=== PATIENT | male | born 1965 | race Caucasian/White ===

== ENCOUNTER 2020-06-09 20:19 | Emergency (ER) | payer OTHER ==
--- NOTE | 2020-06-09 20:55 | RAD ---
RADIOGRAPH CHEST 1 VIEW: DATE: 06/09/2020 HISTORY: 55-year-old male with right-sided chest pain FINDINGS: There are no airspace densities, pulmonary edema, pneumothorax, or cardiomegaly. The lateral costophr enic angles are sharp. IMPRESSION: No acute cardiopulmonary findings.
[2020-06-09] MEDS ORDERED: Morphine 4 MG/ML VIAL ONE (21:02)
[2020-06-09] MEDS ORDERED: Ondansetron PF 4 MG/2 ML Vial ONE (21:02)
[2020-06-09 21:05] LABS: #Basophils 0.1 thou/uL (0.0-0.2); #Eosinphils 0.4 thou/uL (0.0-0.7); #Lymphocytes 1.8 thou/uL (1.20-3.40); #Neutrophils 9.7 thou/uL (1.40-6.50); %Basophils 0.4 % (0.0-1.0); %Eosinophils 2.9 % (0.0-10.0); %Lymphocytes 13.7 % (21.0-51.0); %Monocytes 7.7 % (0.0-10.0); %Neutrophils 75.4 % (42.0-75.0); Mean Corpuscular HGB CONC 33.5 g/dL (32.0-36.0); Mean Corpuscular Hemoglobin 31.4 pg (27.0-31.0); Mean Corpuscular Volume 93.8 fL (78.0-98.0); Mean Platelet Volume 8.6 fL (7.4-10.4); Platelet Count 204 thou/uL (130-400); RBC Distribution Width 11.8 % (11.5-14.5); Red Blood Cell (RBC) Count 5.73 mill/uL (4.70-6.10); White Blood Cell (WBC) Count 12.9 thou/uL (4.8-10.8)
[2020-06-09 21:10] LABS: Bilirubin Negative (Negative); Blood, Urine Negative (Negative); Clarity Clear (Clear); Glucose, Urine (Dipstick) Normal (Negative); Ketone, Urine 10 mg/dL (Negative); Leukocyte Negative Leu/uL (Negative); Nitrite Negative (Negative); Protein, Urine (Dipstick) 10 mg/dL (Neg-Trace); Urobilinogen Normal mg/dL (Less than 2); pH, Urine 5.5 (5.0-9.0)
[2020-06-09 21:16] LABS: ALT (SGPT) 36 U/L (8-55); AST (SGOT) 26 U/L (5-34); Albumin 4.7 g/dL (3.5-5.0); Alkaline Phosphatase 54 U/L (40-110); Anion Gap 16 mmol/L (10-20); BUN (Urea Nitrogen) 15 mg/dL (8.4-25.7); Bilirubin, Total 0.5 mg/dL (0.2-1.2); CK (CPK) 126 U/L (30-200); Calc. Creatinine Clearance 0 mL/min (70-130); Calcium 9.1 mg/dL (7.8-10.44); Carbon Dioxide 25 mmol/L (22-29); Chloride 104 mmol/L (98-107); Globulin 2.5 g/dL (2.4-3.5); Glucose 113 mg/dL (70-105); Lipase 24 U/L (8-78); Potassium 3.4 mmol/L (3.5-5.1); Protein, Total 7.2 g/dL (6.0-8.3); Sodium 142 mmol/L (136-145)
[2020-06-09] MEDS ORDERED: Ketorolac Tromethamine 30 MG/ML VIAL ONE (21:30)
--- NOTE | 2020-06-09 22:10 | CT ---
CT ABDOMEN NONCONTRAST CT PELVIS NONCONTRAST: (Urolithiasis protocol) DATE: 06/09/2020 HISTORY: 55-year-old male with right flank pain COMPARISON: None TECHNIQUE: IV injection of iodinated contrast media: None Oral contrast media: None FINDINGS: Other than for urolithiasis, the lack of IV and oral contrast limits the evaluation. There are numerous small cysts in the left and right lobes of liver. There is a faint, moderately low attenuation, noncystic, approximately 2.5 x 2.5 x 3 cm lesion with s haggy margins, at the junction between hepatic segments 7 and 8. No intrahepatic biliary ductal dilation. No renal, ureteral, or bladder calculus. Several parapelvic cysts at mid and lower pole of left kidney. No hydronephrosis. Normal mural thickness of urinary bladder. Normal appendix. No small bowel dilation, ascites, pneumoperitoneum, colonic diverticulitis, pleural effusion, or basi lar pulmonary consolidation. Within the limitations of a noncontrast scan, no gross pathology identified involving right kidney, a bdominal aorta, adrenals, pancreas, or spleen.. IMPRESSION: 1) no urolithiasis or obstructive uropathy. 2) 3 cm solid, irregular lesion in right lobe of liver. On a nonemergent, elective basis, CT abdomen with and without contrast, liver mass protocol, is recommended. 3) multiple small hepatic cysts.
[2020-06-09] MEDS ORDERED: Diazepam 5 MG TAB ONE (22:55)
== END 2020-06-09 23:20 | disposition home or self-care (01) ==
LOC: ERS 20:19
DX: R10.11 Right upper quadrant pain (principal)
CPT/HCPCS: 71045; 74176; 80053; 81003; 82550; 83690; 84484; 85025; 93005; 94760; 96374; 96375; J1885; J2270; J2405

== ENCOUNTER 2020-07-04 10:08 | Outpatient (CLI) | payer OTHER ==
--- NOTE | 2020-07-04 11:39 | CT ---
CT abdomen without and with IV contrast HISTORY: Liver mass. COMPARISON: CT abdomen 06/09/2020. FINDINGS: The lung bases are clear. Multiple simple cysts are present throughout the liver. The largest in the left lobe is 1.7 cm. The l argest in the right lobe is 2.2 cm. Within the far lateral aspect of the liver dome at the level of the right hepatic vein is an irregula r shaped nonenhancing low density mass with irregular margins. It is 2.6 cm length by 3.4 cm depth by 2.9 cm width and abuts the lateral liver dome capsule over a length of 2.5 cm. A circumferential area of wall thickening of the gastric fundus on the coronal images proves to be pe ristalsis when correlated with multiple image sequences. The spleen, kidneys, and pancreas have a normal appearance. No free fluid in the abdomen. The pelvis was not imaged. IMPRESSION : Solid, aggressive appearing irregular mass within the right liver lobe dome. Primary considerations w ould include metastasis, cholangiocarcinoma, and hepatocellular carcinoma. Because of its location and shape, it would not be amenable to safe percutaneous biopsy. Please consider colonoscopy to evaluate for a primary GI tumor, correlation with tumor markers, and s urgical consultation for potential laparoscopic biopsy.
== END 2020-07-04 10:09 | disposition home or self-care (01) ==
LOC: BICCT 10:08
PROVIDERS: ATTEND Family Medicine
DX: R16.0 Hepatomegaly, not elsewhere classified (principal)
CPT/HCPCS: 74170

== ENCOUNTER 2020-07-11 06:32 | Outpatient (CLI) | payer OTHER ==
[2020-07-11 23:32] LABS: SARS-CoV-2 PCR by NAA Not Detected (NotDetected)
== END 2020-07-11 06:33 | disposition home or self-care (01) ==
LOC: LABBT 06:32
PROVIDERS: ATTEND Specialist
DX: Z01.812 Encounter for preprocedural laboratory examination (principal); R16.0 Hepatomegaly, not elsewhere classified; Z20.822 Contact with and (suspected) exposure to COVID-19
CPT/HCPCS: 87635; U0003; U0005

== ENCOUNTER 2020-07-16 07:31 | Day surgery (SDC) | payer OTHER ==
[2020-07-12 14:42] VITALS: BMI 23.8
[2020-07-16] MEDS ORDERED: Acetaminophen 500 MG TAB ONE (08:19)
[2020-07-16] MEDS ORDERED: Ketorolac Tromethamine 30 MG/ML VIAL ONE (08:19)
[2020-07-16] MEDS ORDERED: Ondansetron PF 4 MG/2 ML Vial ONE (09:38)
[2020-07-16] MEDS ORDERED: Dexamethasone 20 MG/5 ML VIAL ONE (09:38)
[2020-07-16] MEDS ORDERED: Succinylcholine 200 MG/10 ml SYRINGE FS ONE (09:38)
[2020-07-16] MEDS ORDERED: Fentanyl 100 MCG/2 ML VIAL ONE ×2 (09:38→11:47)
[2020-07-16] MEDS ORDERED: PROPOFOL 200 MG/20 ML VIAL ONE (09:38)
[2020-07-16] MEDS ORDERED: Lidocaine 1% PF 5 ML VIAL ONE (09:38)
[2020-07-16] MEDS ORDERED: Glycopyrrolate 0.2 MG/ML 5 ML SYRINGE ONE (09:38)
[2020-07-16] MEDS ORDERED: Rocuronium Bromide 10 MG/ML (10ML VIAL) ONE (09:38)
[2020-07-16] MEDS ORDERED: EPINEPHrine 1 MG/ML AMP ONE (09:45)
[2020-07-16] MEDS ORDERED: Bupivacaine PF 0.5% 30 ML VIAL ONE ×2 (09:45→11:02)
--- NOTE | 2020-07-16 15:23 | OP ---
DATE OF PROCEDURE: 07/16/2020 PREOPERATIVE DIAGNOSIS: Right lobe liver mass, not amenable to percutaneous biopsy, non-enhancing by CT liver protocol. POSTOPERATIVE DIAGNOSIS: Right lobe liver mass, not amenable to percutaneous biopsy, non-enhancing by CT liver protocol, with multiple cyst. PROCEDURE PERFORMED: Laparoscopy with attempted biopsy of mass, not accessible. ANESTHESIA: General, local 0.5% Marcaine 30 mL mixed with 1% Xylocaine with epinephrine 20 mL. DESCRIPTION OF PROCEDURE: The patient was taken to the operating room, where under general anesthesia, abdomen was clipped of hair, prepared with ChloraPrep and draped in routine fashion. Local anesthetic infiltrated in skin and subcutaneous tissue about the operative site. Infraumbilical incision made, pneumoperitoneum to 15 mmHg was obtained with a Veress needle, replaced with a 5 port. Left upper abdominal incision made and a 5 port placed, right subxiphoid incision made and a 5 port placed, and left paramedian incision made and a 5 port placed. Liver and generalized survey of abdominal cavity were unremarkable. Over the dome of the liver, slightly mid to lateral, there were noted to be several hepatic cysts. There was one area, where there might have been a little difference in contour, just over the dome, cephalad of the cyst visualized. I attempted to biopsy this area, but was not able to reach this. Cautery was used for hemostasis. Pneumoperitoneum reduced. All instruments removed and all skin incisions approximated with interrupted subdermal 4-0 Monocryl, and [place] glue applied. I then discussed with the radiologist, reviewed his imaging, and plan would be to have an MRI scan with and without contrast of liver to look at this density. It does not enhance on CT angio liver protocol, and alpha fetoprotein is negative and other tumor markers are pending. His colonoscopies have been normal. It is unlikely that this is a malignancy. We will await his MRI scan result. Job ID: [id number]
== END 2020-07-16 13:10 | disposition home or self-care (01) ==
LOC: SDC 07:31
PROVIDERS: ATTEND Specialist
PROC: 0FB04ZX Excision of Liver, Percutaneous Endoscopic Approach, Diagnostic (ICD-10-PCS; principal; 2020-07-16)
DX: K76.89 Other specified diseases of liver (principal); J45.909 Unspecified asthma, uncomplicated; E78.5 Hyperlipidemia, unspecified
CPT/HCPCS: J0171; J0690; J1100; J1885; J2405; J2704; J3010; S0020

== ENCOUNTER 2023-02-10 09:59 | Outpatient (CLI) | payer OTHER | END 2023-02-10 10:00 | disposition home or self-care (01) | LOC: BICCT 09:59 | PROVIDERS: ATTEND Family Medicine | DX: Z13.6 Encounter for screening for cardiovascular disorders (principal) | CPT/HCPCS: 75571 ==